=== PATIENT | male | born 1945 | race Caucasian/White ===

== ENCOUNTER → 2018-06-26 | Outpatient (CLI) | payer MEDICARE ==
[~2018-06-26] MED LIST: ALLO300T2 PO; AMLO10TA6 PO; CAND1TAB14 PO; METO-387 PO; OMEP20CA12 PO; VIT1CAPS44 PO
--- NOTE | 2018-06-26 13:09 | Diagnostic Imaging Report ---
INDICATION: Lung mass. TIME OF EXAM: 10:16 a.m. No prior studies are available for comparison. The heart size is normal. Lungs are hyperinflated consistent with COPD. A nodule is identified in the left base consistent with a granuloma. Otherwise, the lungs appear to be clear. No effusion or pneumothorax is seen. IMPRESSION: COPD. No acute features detected. Dictated by: Dictated on workstation # [id number]
== END ==
LOC: RAD 09:43
PROVIDERS: ATTEND Nurse Practitioner Family
DX: J44.9 Chronic obstructive pulmonary disease, unspecified (principal); J98.11 Atelectasis; J30.2 Other seasonal allergic rhinitis; K22.70 Barrett's esophagus without dysplasia; K21.9 Gastro-esophageal reflux disease without esophagitis; G47.9 Sleep disorder, unspecified
CPT/HCPCS: 71046

== ENCOUNTER 2018-06-27 05:34 | Outpatient (CLI) | payer MEDICARE ==
[~2018-06-27] VITALS: Ht 190.5 cm; Wt 99.8 kg
[2018-06-27] MEDS ORDERED: ALLO300T2 PO (09:56)
[2018-06-27] MEDS ORDERED: CAND1TAB14 PO (09:56)
[2018-06-27] MEDS ORDERED: VIT1CAPS44 PO (09:56)
[2018-06-27] MEDS ORDERED: AMLO10TA6 PO (09:56)
[2018-06-27] MEDS ORDERED: OMEP20CA12 PO (09:56)
[2018-06-27] MEDS ORDERED: METO-387 PO (09:56)
== END 2018-06-27 09:58 | disposition home or self-care (01) ==
LOC: PREOP 05:34
PROVIDERS: ATTEND Internal Medicine Critical Care Medicine
DX: Z01.818 Encounter for other preprocedural examination (principal)

== ENCOUNTER 2018-06-28 06:46 | Day surgery (SDC) | payer MEDICARE, OTHER ==
[~2018-06-28] VITALS: Ht 190.5 cm; Wt 99.8 kg
[2018-06-28] MEDS ORDERED: NS IV 500 ML 500 ML ONE (06:57)
[2018-06-28 07:20] VITALS: BP 134/74
--- NOTE | 2018-06-28 07:34 | Pre-Op Note & Conscious Sedat ---
Pre-Operative Progress Note H&P Reviewed The H&P was reviewed, patient examined and no changes noted. Date H&P Reviewed: Jun 28, 2018 Time H&P Reviewed: 07:34 Conscious Sedation Pre-Proced Time 07:33 ASA Score 3 For ASA 3 and 4: Consider anesthesia and medical clearance. Also, for patients with a history of failed moderate sedation consider anesthesia. Airway Lungs Heart ASA score ASA 1: a normal healthy patient ASA 2: a patient with a mild systemic disease (mid diabetes, controlled hypertension, obesity ASA 3: a patient with a severe systemic disease that limits activity (angina , COPD, prior Myocardial infarction) ASA 4: a patient with an incapacitating disease that is a constant threat to life (CHF, renal failure) ASA 5: a moribund patient not expected to survive 24 hrs. (ruptured aneurysm) ASA 6: a declared brain patient whose organs are being harvested. For emergent operations, add the letter E after the classification Mallampati Classification Grade 3 Sedation Plan Analgesia, Amnesia, Plan communicated to team members, Discussed options with patient/fam, Discussed risks with patient/fam The patient is an appropriate candidate to undergo the planned procedure, sedation, and anesthesia. The patient immediately re-assessed prior to indication. JUVENAL IGLESIAS DO Jun 28, 2018 07:34
--- NOTE | 2018-06-28 07:34 | Progress Note-Pre Operative ---
Pre-Operative Progress Note H&P Reviewed The H&P was reviewed, patient examined and no changes noted. Time Seen by Provider: 07:33 Date H&P Reviewed: Jun 28, 2018 Time H&P Reviewed: 07:33 Pre-Operative Diagnosis: RLL infiltrate JUVENAL IGLESIAS DO Jun 28, 2018 07:34
[2018-06-28] MEDS ORDERED: NS IV 500 ML 500 ML IV PRN (07:35)
--- NOTE | 2018-06-28 07:37 | Pulmonary Procedures ---
Pulmonary Procedures Date of Procedure Date of Service: Jun 28, 2018 Bronch Bronchoscopy with Fluoroscopy, bronchoalveolar lavage (BAL), transbronchial washes bilateral lungs, percepta brush x 2 and, transbronchial brushes of RLL. Preop DX RLL infiltrate Postop DX: same Complications: none After informed consent obtained and formal time out pt was sedated using Fentanyl and Versed. Bronchoscope was advanced through the nare and vocal cords. 1% lidocaine was used to anesthetize vocal cords, epiglottis, sydni, and left/right main stem bronchus. An anatomical tour was undertaken down to the segmental bronchi bilaterally. No endobronchial lesions noted. bronchoalveolar lavage (BAL), transbronchial washes bilateral lungs, percepta brush x 2 and, transbronchial brushes of RLL. Pt tolerated procedure well. No complications noted. Stat CXR is pending. JUVENAL IGLESIAS DO Jun 28, 2018 07:37
[2018-06-28] MEDS ORDERED: fentaNYL INJECTION 100 MCG/2 ML AMP ONE ×2 (07:41)
[2018-06-28] MEDS ORDERED: MIDAZOLAM 2 MG/2 ML (VERSED) VIAL ONE ×4 (07:42)
[2018-06-28] MEDS ORDERED: fentaNYL INJECTION 100 MCG/2 ML AMP IVP ONE (07:45)
[2018-06-28] MEDS ORDERED: MIDAZOLAM 2 MG/2 ML (VERSED) VIAL IVP ONE (07:45)
[2018-06-28] MEDS ORDERED: LIDOCAINE PF 2% 5 ML (XYLOCAINE) VIAL ONE (08:00)
[2018-06-28] MEDS ORDERED: LIDOCAINE PF 1% 2 ML AMP ONE (08:00)
[2018-06-28] MEDS ORDERED: LIDOCAINE JELLY 2% (XYLOCAINE) 30 ML TUBE ONE (08:00)
[2018-06-28 08:45] VITALS: BP 122/70
--- NOTE | 2018-06-28 09:23 | Diagnostic Imaging Report ---
Indication: Post bronchoscopy chest Portable chest 9:09 AM Heart size and pulmonary vascularity are normal. Lungs are clear. There is calcified granuloma in the left lower lung. There are no effusions or pneumothoraces. Impression: No acute abnormalities in the chest. Dictated by: Dictated on workstation # [id number]
[2018-06-28 09:25] VITALS: BP 126/76
[2018-06-28 09:45] VITALS: BP 126/76
--- NOTE | 2018-06-28 16:10 | Diagnostic Imaging Report ---
Indication: Fluoroscopy for bronchoscopy. Fluoroscopy was provided during performance of bronchoscopy by Dr. Trevino. 31 seconds of fluoroscopy was utilized. Impression: Fluoroscopy during bronchoscopy. Dictated by: Dictated on workstation # [id number]
== END 2018-06-28 09:50 | disposition home or self-care (01) ==
LOC: ENDO 06:46
PROVIDERS: ATTEND Internal Medicine Critical Care Medicine
DX: R91.8 Other nonspecific abnormal finding of lung field (principal); J98.11 Atelectasis; R06.00 Dyspnea, unspecified; R06.83 Snoring; K21.9 Gastro-esophageal reflux disease without esophagitis; Z87.891 Personal history of nicotine dependence; Z80.1 Family history of malignant neoplasm of trachea, bronchus and lung
CPT/HCPCS: 71045; 87015; 87070; 87077; 87101; 87116; 87186; 87205; 87206; 88112; 88305; 88312

== ENCOUNTER → 2018-07-24 | Outpatient (CLI) | payer OTHER ==
--- NOTE | 2018-07-24 16:21 | Diagnostic Imaging Report ---
INDICATION: Congestion. Comparison made with prior examination from 06/28/2018. PA and lateral views were obtained. FINDINGS: Heart size is normal. Mediastinum is unremarkable. Lungs are clear. There is no pleural effusion or pneumothorax. There is calcified granuloma in the left lung base. IMPRESSION: No acute cardiopulmonary abnormality. Dictated by: Dictated on workstation # [id number]
== END ==
LOC: RAD 15:43
PROVIDERS: ATTEND Nurse Practitioner Family
DX: R91.8 Other nonspecific abnormal finding of lung field (principal); R09.89 Other specified symptoms and signs involving the circulatory and respiratory systems; Z22.322 Carrier or suspected carrier of Methicillin resistant Staphylococcus aureus
CPT/HCPCS: 71046

== ENCOUNTER → 2018-08-21 | Outpatient (CLI) | payer MEDICARE, OTHER ==
--- NOTE | 2018-08-21 10:12 | Diagnostic Imaging Report ---
PROCEDURE: CT chest without contrast. TECHNIQUE: Multiple contiguous axial images were obtained through the chest without the use of intravenous contrast. INDICATION: History of abnormal imaging of the chest. No current complaints. Previous history of congestion. COMPARISON: Chest radiograph 07/24/2018. Outside CT of the chest 06/14/2018, no report. FINDINGS: Given limitations for lack of contrast, no definitive pathologic enlarged mediastinal and/or hilar lymph nodes. A few calcified left subcarinal and hilar lymph nodes are present. No pathologic enlarged axillary lymphadenopathy. Heart size normal. No pericardial effusion. There is scattered moderate coronary artery calcification. Multiple surgical clips in the epigastric region with the gastroesophageal junction appearing relatively unremarkable. There is an approximately 8 cm regional area of consolidation about the posterior medial aspect of the right lower lobe. There is some cavitation along the peripheral area of consolidation. Remaining lung felipe are clear but demonstrate emphysematous changes. A few scattered small blebs are present. Calcified granuloma in the left lower lobe. No significant pleural effusion. Slight heterogeneous appearance by the liver parenchyma for which fatty infiltration not excluded. Cholecystectomy clips are present. Mild accentuated thoracic kyphosis and advanced degenerative changes about the thoracic spine with bridging osteophytes. IMPRESSION: Regional consolidation of the posterior medial right lower lobe most compatible with pneumonia. Given appearance and distribution, aspiration is a consideration. There is suggestion of some cavitation along the peripheral margins of this consolidation. This area as well as areas of cavitation does appear slightly increased in size compared to prior imaging of two months ago. While neoplastic process considered less likely, it should not be excluded at this time given its persistent nature. Dictated by: Dictated on workstation # [id number]
[2018-08-21 10:56] LABS: BASOPHILS % (AUTO) 0 % (0-10); EOSINOPHILS # (AUTO) 0.2 10^3/uL (0.0-0.3); EOSINOPHILS % (AUTO) 2 % (0-10); HEMATOCRIT 43 % (40-54); HEMOGLOBIN 15.1 G/DL (13.3-17.7); LYMPHOCYTES # (AUTO) 2.1 X 10^3 (1.0-4.0); LYMPHOCYTES % (AUTO) 24 % (12-44); MEAN CORPUSCULAR HEMOGLOBIN 30 PG (25-34); MEAN CORPUSCULAR HGB CONC 35 G/DL (32-36); MEAN CORPUSCULAR VOLUME 86 FL (80-99); MEAN PLATELET VOLUME 8.6 FL (7.4-10.4); MONOCYTES # (AUTO) 0.8 X 10^3 (0.0-1.0); MONOCYTES % (AUTO) 9 % (0-12); NEUTROPHILS # (AUTO) 5.7 X 10^3 (1.8-7.8); NEUTROPHILS % (AUTO) 64 % (42-75); PLATELET COUNT 455 10^3/uL (130-400); RED BLOOD COUNT 5.03 10^6/uL (4.35-5.85); RED CELL DISTRIBUTION WIDTH 14.4 % (10.0-14.5); WHITE BLOOD COUNT 8.9 10^3/uL (4.3-11.0)
== END ==
LOC: RAD 08:35
PROVIDERS: ATTEND Nurse Practitioner Family
DX: J18.1 Lobar pneumonia, unspecified organism (principal); K22.70 Barrett's esophagus without dysplasia; J30.2 Other seasonal allergic rhinitis; G47.9 Sleep disorder, unspecified; J98.11 Atelectasis; J21.9 Acute bronchiolitis, unspecified; R91.8 Other nonspecific abnormal finding of lung field; Z22.322 Carrier or suspected carrier of Methicillin resistant Staphylococcus aureus; Z87.09 Personal history of other diseases of the respiratory system
CPT/HCPCS: 36415; 71250; 85025

== ENCOUNTER → 2018-09-10 | Outpatient (CLI) | payer OTHER ==
[~2018-09-10] MED LIST changes: +CATHETER FLUSH 10 ML SYR IV PRN; +IOHEXOL 350 MG/ML 100 ML (OMNIPAQUE 350) VIAL IV ONE; +NS 100 ML (IVPB) BAG IV ONE; +RECEIVED CONTRAST (Hold Metformin) IV SCH
[2018-09-10 11:41] LABS: BASOPHILS % (AUTO) 0 % (0-10); EOSINOPHILS # (AUTO) 0.2 10^3/uL (0.0-0.3); EOSINOPHILS % (AUTO) 3 % (0-10); HEMATOCRIT 42 % (40-54); LYMPHOCYTES # (AUTO) 1.6 X 10^3 (1.0-4.0); LYMPHOCYTES % (AUTO) 20 % (12-44); MEAN CORPUSCULAR HEMOGLOBIN 29 PG (25-34); MEAN CORPUSCULAR HGB CONC 34 G/DL (32-36); MEAN CORPUSCULAR VOLUME 87 FL (80-99); MEAN PLATELET VOLUME 8.7 FL (7.4-10.4); MONOCYTES # (AUTO) 0.7 X 10^3 (0.0-1.0); MONOCYTES % (AUTO) 9 % (0-12); NEUTROPHILS # (AUTO) 5.3 X 10^3 (1.8-7.8); NEUTROPHILS % (AUTO) 68 % (42-75); PLATELET COUNT 302 10^3/uL (130-400); RED CELL DISTRIBUTION WIDTH 14.3 % (10.0-14.5); WHITE BLOOD COUNT 7.8 10^3/uL (4.3-11.0)
[2018-09-10 11:59] LABS: BUN/CREATININE RATIO 11; CREATININE SERUM 1.03 MG/DL (0.60-1.30); GFR ESTIMATED > 60
--- NOTE | 2018-09-10 12:54 | Diagnostic Imaging Report ---
PROCEDURE: CT chest with contrast only. TECHNIQUE: Multiple contiguous axial images were obtained through the chest after administration of intravenous contrast. INDICATION: Chest congestion. Study is performed to evaluate for endobronchial mass. Correlation is made with recent noncontrast CT chest from 08/21/2018. No axillary lymphadenopathy is identified. No definite mediastinal or hilar lymphadenopathy is detected. No pericardial or pleural fluid is identified. The central airways appear to be patent, without evidence of endobronchial lesion. Parenchymal evaluation does show some centrilobular emphysematous changes in the upper lobes. There continues to be a region of consolidation in the posterior right lower lobe with perhaps some cavitation. This is nearly identical to the examination from 08/21/2018. No new parenchymal opacity is identified. Upper abdomen does show some hepatic steatosis. IMPRESSION: 1. Continued right lower lobe consolidation, similar to the recent CT study from 3 weeks earlier. Features remain most suggestive of an infectious/inflammatory process but continued followup is recommended. No new abnormality is seen. Dictated by: Dictated on workstation # [id number]
== END ==
LOC: RAD 11:24
PROVIDERS: ATTEND Nurse Practitioner Family
DX: J18.1 Lobar pneumonia, unspecified organism (principal); R91.8 Other nonspecific abnormal finding of lung field; J30.2 Other seasonal allergic rhinitis; J98.11 Atelectasis; K22.70 Barrett's esophagus without dysplasia; K21.9 Gastro-esophageal reflux disease without esophagitis; Z22.322 Carrier or suspected carrier of Methicillin resistant Staphylococcus aureus
CPT/HCPCS: 36415; 71260; 82565; 84520; 85025

== ENCOUNTER 2018-09-14 06:27 | Day surgery (SDC) | payer OTHER ==
[~2018-09-14] VITALS: Ht 190.5 cm; Wt 99.8 kg
[~2018-09-14 06:27] MED LIST changes: -CATHETER FLUSH 10 ML SYR IV PRN; -IOHEXOL 350 MG/ML 100 ML (OMNIPAQUE 350) VIAL IV ONE; -NS 100 ML (IVPB) BAG IV ONE; -RECEIVED CONTRAST (Hold Metformin) IV SCH
[2018-09-14] MEDS ORDERED: LIDOCAINE PF 1% 2 ML AMP IJ ONE (06:28)
[2018-09-14] MEDS ORDERED: LIDOCAINE PF 2% 5 ML (XYLOCAINE) VIAL INJ ONE (06:28)
[2018-09-14] MEDS ORDERED: LIDOCAINE JELLY 2% (XYLOCAINE) 30 ML TUBE TOP ONE (06:28)
[2018-09-14] MEDS ORDERED: NS IV 500 ML 500 ML IV PRN (06:55)
[2018-09-14 07:00] VITALS: BP 127/85
[2018-09-14] MEDS ORDERED: fentaNYL INJECTION 100 MCG/2 ML AMP IVP ONE (07:00)
[2018-09-14] MEDS ORDERED: MIDAZOLAM 2 MG/2 ML (VERSED) VIAL IVP ONE (07:00)
[2018-09-14] MEDS ORDERED: NS IV 500 ML 500 ML ONE (07:14)
[2018-09-14] MEDS ORDERED: MIDAZOLAM 2 MG/2 ML (VERSED) VIAL ONE ×3 (07:19→07:20)
[2018-09-14] MEDS ORDERED: fentaNYL INJECTION 100 MCG/2 ML AMP ONE ×2 (07:19)
--- NOTE | 2018-09-14 08:19 | Progress Note-Pre Operative ---
Pre-Operative Progress Note H&P Reviewed The H&P was reviewed, patient examined and no changes noted. Time Seen by Provider: 08:18 Date H&P Reviewed: Sep 14, 2018 Time H&P Reviewed: 08:18 Pre-Operative Diagnosis: Persistent infiltrate. JUVENAL IGLESIAS DO Sep 14, 2018 08:19
--- NOTE | 2018-09-14 08:19 | Pre-Op Note & Conscious Sedat ---
Pre-Operative Progress Note H&P Reviewed The H&P was reviewed, patient examined and no changes noted. Date H&P Reviewed: Sep 14, 2018 Time H&P Reviewed: 08:19 Conscious Sedation Pre-Proced Time 08:18 ASA Score 3 For ASA 3 and 4: Consider anesthesia and medical clearance. Also, for patients with a history of failed moderate sedation consider anesthesia. Airway Lungs Heart ASA score ASA 1: a normal healthy patient ASA 2: a patient with a mild systemic disease (mid diabetes, controlled hypertension, obesity ASA 3: a patient with a severe systemic disease that limits activity (angina , COPD, prior Myocardial infarction) ASA 4: a patient with an incapacitating disease that is a constant threat to life (CHF, renal failure) ASA 5: a moribund patient not expected to survive 24 hrs. (ruptured aneurysm) ASA 6: a declared brain patient whose organs are being harvested. For emergent operations, add the letter E after the classification Mallampati Classification Grade 3 Sedation Plan Analgesia, Amnesia, Plan communicated to team members, Discussed options with patient/fam, Discussed risks with patient/fam The patient is an appropriate candidate to undergo the planned procedure, sedation, and anesthesia. The patient immediately re-assessed prior to indication. JUVENAL IGLESIAS DO Sep 14, 2018 08:19
--- NOTE | 2018-09-14 08:23 | Pulmonary Procedures ---
Pulmonary Procedures Date of Procedure Date of Service: Sep 14, 2018 Bronch Bronchoscopy with Fluoroscopy RLL bronchoalveolar lavage (BAL), Bilateral transbronchial washes, forcep bx taken from RUL, transbronchial brushes x 2 RLL. [place] RUL x 1, and [place] of sydni x 2 Preop DX ILD Postop DX: benign appearing lesion of RUL - bx taken Complications: none After informed consent obtained and formal time out pt was sedated using Fentanyl and Versed. Bronchoscope was advanced through the nare and vocal cords. 1% lidocaine was used to anesthetize vocal cords, epiglottis, sydni, and left/right main stem bronchus. An anatomical tour was undertaken down to the segmental bronchi bilaterally. Bronchoscopy with Fluoroscopy RLL bronchoalveolar lavage (BAL), Bilateral transbronchial washes, forcep bx taken from RUL, transbronchial brushes x 2 RLL. [place] RUL x 1, and [place] of sydni x 2. . Pt tolerated procedure well. No complications noted. Stat CXR is pending. JUVENAL IGLESIAS DO Sep 14, 2018 08:23
[2018-09-14 08:40] VITALS: BP 120/70
--- NOTE | 2018-09-14 08:57 | Diagnostic Imaging Report ---
INDICATION: Status post bronchoscopy. Time of exam: 8:25 AM Correlation is made with prior study from 07/24/2018. Heart size is stable. There is an infiltrate identified in the medial right base. No pneumothorax is identified status post bronchoscopy. Calcified granuloma left base is stable. IMPRESSION: Right basilar infiltrate. No pneumothorax is seen status post bronchoscopy. Dictated by: Dictated on workstation # [id number]
[2018-09-14 09:10] VITALS: BP 123/71
--- NOTE | 2018-09-14 09:26 | Diagnostic Imaging Report ---
Indication: Bronchoscopy. Fluoroscopy was provided for Dr. Trevino during bronchoscopy. 38 seconds of fluoroscopic time was utilized. Impression: Fluoroscopy for bronchoscopy. Dictated by: Dictated on workstation # [id number]
[2018-09-14 10:00] VITALS: BP 123/71
[2018-09-14 10:23] LABS: BODY FLUID APPEARENCE SLT CLDY; BODY FLUID COLOR COLORLESS; BODY FLUID SOURCE BRONCH
[2018-09-14 10:24] LABS: BF OTHER CELLS 51 %; LYMPHOCYTES,BODY FLUID 23 %
== END 2018-09-14 09:20 | disposition home or self-care (01) ==
LOC: ENDO 06:27
PROVIDERS: ATTEND Internal Medicine Critical Care Medicine
DX: J98.4 Other disorders of lung (principal); R91.1 Solitary pulmonary nodule; J98.11 Atelectasis; R06.83 Snoring; K21.9 Gastro-esophageal reflux disease without esophagitis; Z87.891 Personal history of nicotine dependence; Z80.1 Family history of malignant neoplasm of trachea, bronchus and lung; Z79.899 Other long term (current) drug therapy
CPT/HCPCS: 71045; 87015; 87070; 87101; 87116; 87205; 87206; 89051; 94640

== ENCOUNTER → 2018-11-08 | Outpatient (CLI) | payer OTHER ==
[~2018-11-08] MED LIST changes: -AMLO10TA6 PO; +AMLO10TA7 PO
[2018-11-08 11:59] LABS: BUN/CREATININE RATIO 15; CREATININE SERUM 1.11 MG/DL (0.60-1.30); GFR ESTIMATED > 60
== END ==
LOC: LAB 11:28
PROVIDERS: ATTEND Nurse Practitioner Family
DX: K22.70 Barrett's esophagus without dysplasia (principal); J30.2 Other seasonal allergic rhinitis; K21.9 Gastro-esophageal reflux disease without esophagitis; R91.8 Other nonspecific abnormal finding of lung field; J98.11 Atelectasis; G47.9 Sleep disorder, unspecified; Z22.322 Carrier or suspected carrier of Methicillin resistant Staphylococcus aureus
CPT/HCPCS: 36415; 82565; 84520

== ENCOUNTER 2018-11-13 10:44 | Outpatient (RCR) | payer OTHER | END 2019-02-11 | disposition home or self-care (01) | LOC: LAB 10:44 | PROVIDERS: ATTEND Nurse Practitioner Family | DX: K22.70 Barrett's esophagus without dysplasia (principal); J30.2 Other seasonal allergic rhinitis; G47.9 Sleep disorder, unspecified; J98.11 Atelectasis; K21.9 Gastro-esophageal reflux disease without esophagitis; R91.8 Other nonspecific abnormal finding of lung field; Z22.322 Carrier or suspected carrier of Methicillin resistant Staphylococcus aureus | CPT/HCPCS: 87070; 87205 ==

== ENCOUNTER → 2018-11-20 | Outpatient (CLI) | payer MEDICARE, OTHER ==
[~2018-11-20] MED LIST changes: +HOLD METFORMIN - RECEIVED CONTRAST 20 ML VIAL IV SCH; +IOHEXOL 350 MG/ML 100 ML (OMNIPAQUE 350) VIAL IV ONE
--- NOTE | 2018-11-20 15:10 | Diagnostic Imaging Report ---
PROCEDURE: CT chest with contrast only. TECHNIQUE: Multiple contiguous axial images were obtained through the chest after administration of intravenous contrast. INDICATION: Congestion. Correlation made with prior CT chest from 09/10/2018. The axillae are unremarkable. No hilar or mediastinal lymphadenopathy is detected. No pericardial fluid is seen. Parenchymal evaluation again show centrilobular emphysematous changes. There has been some development of some mild interstitial nodular infiltrates in the right middle lobe since prior CT. There is also some worsening infiltrate in the right lower lobe anteriorly with somewhat nodular component. Consolidation with air bronchograms with perhaps some mild cavitation with air and fluid in the posterior right lower lobe is similar to prior has not significantly changed. Left lung remains clear. Upper abdomen demonstrates low-density throughout the liver consistent with hepatic steatosis. IMPRESSION: No significant change in the right lower lobe consolidation with cavitation when compared with study from 09/10/2018. There has been interval development of somewhat interstitial nodular infiltrate in the right middle lobe and right lower lobe since prior CT. Dictated by: Dictated on workstation # [id number]
== END ==
LOC: RAD 10:50
PROVIDERS: ATTEND Nurse Practitioner Family
DX: J18.1 Lobar pneumonia, unspecified organism (principal); A15.0 Tuberculosis of lung; K22.70 Barrett's esophagus without dysplasia; J30.2 Other seasonal allergic rhinitis; K21.9 Gastro-esophageal reflux disease without esophagitis; G47.9 Sleep disorder, unspecified; Z22.322 Carrier or suspected carrier of Methicillin resistant Staphylococcus aureus
CPT/HCPCS: 71260